=== PATIENT | male | born 1970 | race Caucasian/White ===

== ENCOUNTER 2022-02-27 10:21 | Emergency (ER) | payer SELFPAY ==
[~2022-02-27] VITALS: Ht 177.8 cm; Wt 104.3 kg
[2022-02-27 10:25] VITALS: BP_SYST 135
--- NOTE | 2022-02-27 10:26 | NUR ---
BEATA WITH C/C OF OVERDOSE ON HEROIN. [facility] BY FIRE DEPT INITIALLY 3, [facility] NOW 15 AFTER REPORTED NARCAN GIVEN IN THE FIELD. 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 BP STABLE. AFEBRILE. NAD NOTED. REPORTS SOME SLIGHT NAUSEA. EMESIS BAG GIVEN. REPORTS HX OF ETOH, LAST DRINK YESTERDAY. PT REPORTS DRINKING 1-2 BOTTLES OF ABBASI GOOSE VODKA PER DAY. PT STATED HE HAS HX OF HEROIN USE AND USED TODAY TO GET SOME SLEEP. PT REPORTS NOT SLEEPING "FOR THE LAST DAY OR SO". CONDITION STABLE AT THIS TIME. WILL CONT TO MONITOR. PLACED ON 2L O2 NC.
--- NOTE | 2022-02-27 10:30 | NUR ---
PT PLACED ON 2L NC
[2022-02-27 10:52] LABS: BASOPHILS # (AUTO) 0.1 K/uL (0.0-0.2); BASOPHILS % (AUTO) 1.4 % (0.0-2.0); EOSINOPHILS % (AUTO) 0.4 % (0.0-4.0); HEMATOCRIT 43.1 % (36-54); LYMPHOCYTES # (AUTO) 1.4 K/uL (1.0-5.5); LYMPHOCYTES % (AUTO) 23.5 % (20.5-51.5); MEAN CORPUSCULAR VOLUME 83 fL (79.0-98.0); MONOCYTES # (AUTO) 0.6 K/uL (0.0-1.0); MONOCYTES % (AUTO) 9.1 % (1.7-9.3); NEUTROPHILS % (AUTO) 65.6 % (40.0-70.0); PLATELET COUNT (AUTO) 176 K/uL (130-430); RED BLOOD CELL COUNT(AUTO) 5.19 MIL/uL (4.2-6.2); RED CELL DISTRIBUTION WIDTH 14.9 % (9.0-15.0); WHITE BLOOD COUNT (AUTO) 6.2 K/uL (4.8-10.8)
[2022-02-27 11:08] LABS: CALCIUM 8.6 mg/dL (8.4-11.0); CREATININE 1.14 mg/dL (0.55-1.30); POTASSIUM 3.7 mmol/L (3.5-5.1)
[2022-02-27 11:15] LABS: ALBUMIN 3.5 g/dL (3.4-4.8); TOTAL BILIRUBIN 0.4 mg/dL (0.0-1.0)
[2022-02-27] MEDS ORDERED: ACETAMINOPHEN 500 MG TABLET ONE (13:41)
[2022-02-27] MEDS ORDERED: ACETAMINOPHEN 500 MG TABLET PO ONE (13:45)
[2022-02-27] MEDS ORDERED: NITROGLYCERIN 0.4 MG TAB.SUBL SL ONE (13:45)
[2022-02-27] MEDS ORDERED: ASPIRIN 81 MG TAB.CHEW PO ONE (13:45)
[2022-02-27 18:23] VITALS: BP_SYST 140
--- NOTE | 2022-02-27 18:25 | NUR ---
PT CLEARED FOR DC BY DR. CHANG. NAD NOTED. AAO X 4, VOIDING AND AMBULATING WITHOUT DISTRESS. VSS, AFEBRILE. PT TO GO HOME WITH FRIEND. IV ACCESS DC INTACT WITH NO ACTIVE BLEEDING. PT VERBALIZED UNDERSTANDING OF DC INSTRUCTIONS. PT AMBULATED OUT OF ED IN STABLE CONDITION.
--- NOTE | 2022-02-27 18:30 | NUR ---
Patient given written and verbal discharge instructions and verbalizes understanding. ER MD discussed with patient the results and treatment provided. Patient in stable condition. ID arm band removed. IV catheter removed intact and dressing applied, no active bleeding. NO Rx given. Patient educated on pain management and to follow up with PMD. Pain Scale 0. Opportunity for questions provided and answered. Medication side effect fact sheet provided.
== END 2022-02-27 18:23 | disposition home or self-care (01) ==
LOC: SED 10:21
DX: T40.1X1A Poisoning by heroin, accidental (unintentional), initial encounter (principal); Z79.899 Other long term (current) drug therapy; Y92.89 Other specified places as the place of occurrence of the external cause
CPT/HCPCS: 36415; 71045; 80053; 85025; 99284

== ENCOUNTER 2022-07-07 20:06 | Emergency (ER) | payer MEDICAID ==
[~2022-07-07] VITALS: Ht 177.8 cm; Wt 72.1 kg
--- NOTE | 2022-07-07 20:11 | NUR ---
Patient to ER bed 6 to gown for evaluation. Side rails up. Report given to Lidia MOORE.
[2022-07-07 20:13] VITALS: BP_SYST 134
[2022-07-07] MEDS ORDERED: ACETAMINOPHEN 325 MG TABLET PO ONE (20:15)
--- NOTE | 2022-07-07 20:15 | NUR ---
AMPARO Sunshine at bedside.
[2022-07-07] MEDS ORDERED: LIDOCAINE/EPI 1% 1:100000 20 ML VIAL ONE (21:15)
[2022-07-07] MEDS ORDERED: KETOROLAC TROMETHAMINE 60 MG/2 ML VIAL IM ONE (21:15)
--- NOTE | 2022-07-07 21:30 | NUR ---
Patient bib [facility] from home for c/o laceration to left side of forehead x1day. Patient denies ALOC/LOC. Patient reports bilateral rib pain from previous rib injury. Patient reports he was D/C from [facility] [place] this am for possible overdose. Patient A/Ox4, VSS, ambulatory, resp even and unlabored. Nad noted at this time. ER MD Sunshine made aware.
--- NOTE | 2022-07-07 21:55 | NUR ---
ER MD Sunshine at bedside performing laceration repair.
[2022-07-07] MEDS ORDERED: DICL75TA5 PO (22:16)
[2022-07-07] MEDS ORDERED: DICL20GE TP (22:16)
[2022-07-07] MEDS ORDERED: BACITRACIN 1 GM OINT TP ONE (22:23)
[2022-07-07 23:09] VITALS: BP_SYST 134
--- NOTE | 2022-07-07 23:09 | NUR ---
Patient given written and verbal discharge instructions and verbalizes understanding. ER MD discussed with patient the results and treatment provided. Patient in stable condition. ID arm band removed. Rx of Voltaren given. Patient educated on pain management and to follow up with PMD. Pain Scale 0/10. Opportunity for questions provided and answered. Medication side effect fact sheet provided. Patient A/Ox4, VSS, ambulatory, resp even and unlabored. Patient accompanied by self and in stable condition upon discharge.
== END 2022-07-07 23:09 | disposition home or self-care (01) ==
LOC: SED 20:06
DX: S22.31XA Fracture of one rib, right side, initial encounter for closed fracture (principal); S22.42XA Multiple fractures of ribs, left side, initial encounter for closed fracture; S01.81XA Laceration without foreign body of other part of head, initial encounter; F17.200 Nicotine dependence, unspecified, uncomplicated; F15.10 Other stimulant abuse, uncomplicated; F11.90 Opioid use, unspecified, uncomplicated; Z79.899 Other long term (current) drug therapy; W01.0XXA Fall on same level from slipping, tripping and stumbling without subsequent striking against object, initial encounter; Y93.89 Activity, other specified; Y92.89 Other specified places as the place of occurrence of the external cause; Y99.8 Other external cause status
CPT/HCPCS: 99285; 70450; 93005; 71250; 76376; 96372; 12013; J1885